=== PATIENT | female | born 1980 | race Caucasian/White ===

== ENCOUNTER 2016-07-26 18:44 | Emergency (ER) | payer MEDICAID ==
[2016-07-26 19:02] VITALS: BP 139/89
[2016-07-26] MEDS ORDERED: Ketorolac 30 MG/ML SDV IVPUSH ONE (19:28)
[2016-07-26] MEDS ORDERED: Sodium Chloride 0.9% 10 ML Syringe FLUSH PRN (19:28)
[2016-07-26] MEDS ORDERED: Sodium Chloride 0.9% 1,000 ML IV ONE (19:28)
--- NOTE | 2016-07-26 19:46 | EDM.PDOC ---
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 She says her period is much heavier than normal. She was soaking a pad or tampon every couple hours, however it has slowed down since arrival to the ED. She says "I just feel terrible." She reports right flank pain that is described as worse with movement. She denies dysuria, frequency, or urgency. No left flank pain. She reports a history of tubal ligation. She is 9, para 4. Her period is regular "like clockwork. " She says she feels lightheaded with position changes. She's had chills but no known fever. She reports a mild occasional non-productive cough that exaggerates her flank pain. - Related Data Allergies/ADRs: Allergies Allergy/AdvReac Type Severity Reaction Status Date / Time acetaminophen [From Tylenol] Allergy Vomiting Verified 11/11/15 22:49 codeine Allergy Vomiting Verified 11/11/15 22:49 Home Meds: Home Meds Ciprofloxacin [IJD: Ciprofloxacin HCl] 500 mg PO BID #14 tab 07/26/16 [Rx] Past Medical History - Past Surgical History Female Surgical History: Reports: section, Tubal ligation Social & Family History - Tobacco Use Smoking Status *Q: Current Every Day Smoker Years of Tobacco use: 12 Packs/Tins Daily: 0.5 Used Tobacco, but Quit: No - Caffeine Use Caffeine Use: Reports: Coffee, Energy drinks, Soda, Tea - Recreational Drug Use Recreational Drug Use: Yes Recreational Drug Type: Reports: Marijuana/Hashish Other Recreational Drug Type: last used about 1 month ago ED ROS GENERAL - Review of Systems Review Of Systems: See Below Constitutional: Reports: chills, malaise, fatigue, decreased appetite. Denies: fever Respiratory: Reports: Cough. Denies: Shortness of Breath, Sputum Cardiovascular: Reports: No symptoms. Denies: Chest pain, Dyspnea on exertion GI/Abdominal: Reports: No symptoms. Denies: Abdominal pain, Diarrhea, Nausea, Vomiting : Reports: flank pain, other (heavy menstural period ). Denies: dysuria, frequency, pain, urgency ED EXAM, RENAL/ - Physical Exam Exam: See Below Exam Limited By: No limitations General Appearance: alert, WD/WN, anxious, mild distress Respiratory/Chest: no respiratory distress, lungs clear, normal breath sounds Cardiovascular: regular rate, rhythm, no edema, tachycardia (110 bpm) GI/Abdominal: normal bowel sounds, soft, non tender, no distention Back Exam: normal inspection, full range of motion, CVA tenderness (R). No: CVA tenderness (L) Neurological: alert, oriented, normal cognition Skin Exam: Warm, Dry, Intact Course - Vital Signs Last Recorded V/S: Last Vital Signs Temp 99.4 F 07/26/16 19:01 Pulse 110 H 07/26/16 19:01 Resp 20 07/26/16 19:01 BP 139/89 07/26/16 19:01 Pulse Ox 99 07/26/16 19:01 - Orders/Labs/Meds Orders: Active Orders 24 hr Category Date Time Status Orthostatic Vital Signs [RC] ASDIRECTED Care 07/26/16 19:28 Active Peripheral IV Care [RC] . DIRECTED Care 07/26/16 19:28 Active CULTURE URINE [RM] Stat Lab 07/26/16 20:44 Uncollected Sodium Chloride 0.9% [Saline Flush] Med 07/26/16 19:28 Active 10 ml FLUSH ASDIRECTED PRN Peripheral IV Insertion Adult [OM.PC] Stat Oth 07/26/16 19:28 Ordered Medication Orders Sodium Chloride (Saline Flush) 10 ml FLUSH ASDIRECTED PRN PRN Reason: Keep Vein Open Last Admin: 07/26/16 19:54 Dose: 10 ml Labs: Laboratory Tests 07/26/16 07/26/16 07/26/16 Range/Units 19:35 19:35 19:48 WBC 7.61 (3.98-10.04) K/mm3 RBC 4.56 (3.98-5.22) M/mm3 Hgb 13.8 (11.2-15.7) gm/L Hct 39.8 (34.1-44.9) % MCV 87.3 (79.4-94.8) fl MCH 30.3 (25.6-32.2) pg MCHC 34.7 (32.2-35.5) g/dl RDW Std Deviation 41.0 (36.4-46.3) fL Plt Count 253 (182-369) K/mm3 MPV 9.7 (9.4-12.3) fl Neut % (Auto) 72.9 H (34.0-71.1) % Lymph % (Auto) 15.9 L (19.3-51.7) % [place] % (Auto) 10.5 (4.7-12.5) % Eos % (Auto) 0.1 L (0.7-5.8) Baso % (Auto) 0.3 (0.1-1.2) % Neut # (Auto) 5.55 (1.56-6.13) K/mm3 Lymph # (Auto) 1.21 (1.18-3.74) K/mm3 [place] # (Auto) 0.80 H (0.24-0.36) K/mm3 Eos # (Auto) 0.01 L (0.04-0.36) K/mm3 Baso # (Auto) 0.02 (0.01-0.08) K/mm3 Sodium 135 L (136-145) mEq/L Potassium 3.3 L (3.5-5.1) mEq/L Chloride 98 (98-107) mEq/L Carbon Dioxide 24 (21-32) mEq/L Anion Gap 16.3 H (5-15) BUN 8 (7-18) mg/dL Creatinine 0.9 (0.55-1.02) mg/dL Est Cr Clr Drug Dosing 79.25 mL/min Estimated GFR (MDRD) > 60 (>60) mL/min BUN/Creatinine Ratio 8.9 L (14-18) Glucose 103 (74-106) mg/dL Calcium 8.8 (8.5-10.1) mg/dL Total Bilirubin 0.7 (0.2-1.0) mg/dL AST 12 L (15-37) U/L ALT 16 (14-59) U/L Alkaline Phosphatase 66 (46-116) U/L C-Reactive Protein 15.7 H* (<1.0) mg/dL Total Protein 8.0 (6.4-8.2) g/dl Albumin 4.0 (3.4-5.0) g/dl Globulin 4.0 gm/dL Albumin/Globulin Ratio 1.0 (1-2) Urine Color Yellow (Yellow) Urine Appearance Cloudy H (Clear) Urine pH 6.0 (5.0-8.0) Ur Specific [place] 1.020 (1.005-1.030) Urine Protein 2+ H (Negative) Urine Glucose (UA) Negative (Negative) Urine Ketones 3+ H (Negative) Urine Occult Blood 3+ H (Negative) Urine Nitrite Positive H (Negative) Urine Bilirubin Negative (Negative) Urine Urobilinogen 1.0 (0.2-1.0) Ur Leukocyte Esterase 1+ H (Negative) Urine RBC 5-10 H (0-5) /hpf Urine WBC 75-100 H (0-5) /hpf Ur Squamous Epith Cells 10-20 H (0-5) /hpf Urine Bacteria Moderate H (FEW) /hpf Urine Mucus Not seen (FEW) /hpf Meds: Medications Generic Name Dose Route Start Last Admin Trade Name Freq PRN Reason Stop Dose Admin Sodium Chloride 10 ml 07/26/16 19:28 07/26/16 19:54 Saline Flush FLUSH 10 ml ASDIRECTED PRN Administration Keep Vein Open Discontinued Medications Generic Name Dose Route Start Last Admin Trade Name Freq PRN Reason Stop Dose Admin Sodium Chloride 1,000 mls @ 999 mls/hr 07/26/16 19:28 07/26/16 19:54 Normal Saline IV 07/26/16 20:28 999 mls/hr ONETIME ONE Administration Ketorolac Tromethamine 30 mg 07/26/16 19:28 07/26/16 19:55 Toradol IVPUSH 07/26/16 19:29 30 mg ONETIME ONE Administration - Re-Assessments/Exams Free Text/Narrative Re-Assessment/Exam: CBC reveals a normal WBC and hemoglobin. CRP is significantly elevated at 15.7. CMP reveals sodium of 135, potassium of 3.3, anion gap 16.3. UA is consistent with pyelonephritis as suspected. Urine culture ordered. Heart rate has improved to normal with IV fluids. She received Toradol for pain. Will treat with Cipro and discharge home. Patient educated on return precautions. Departure - Departure Time of Disposition: 20:52 Disposition: Home, Self-Care 01 Condition: good Clinical Impression: Pyelonephritis Heavy menses Qualifiers: Menorrahagia type: with regular cycle Qualified Code(s): N92.0 - Excessive and frequent menstruation with regular cycle Prescriptions: Ciprofloxacin [IJD: Ciprofloxacin HCl] 500 mg PO BID #14 tab Referrals: PCP,None [Primary Care Provider] - Forms: ED Department Discharge Additional Instructions: Ciprofloxacin 500mg twice a day for 7 days Ibuprofen 600mg every 8 hours as needed for pain or fever Drink at least 80 oz of water per day Return to ER with worsening symptoms or additional concerns. Follow-up in clinic in clinic in 2-3 days for recheck, call [phone] to schedule. - My Orders Last 24 Hours: My Active Orders 07/26/16 19:28 Orthostatic Vital Signs [RC] ASDIRECTED Peripheral IV Care [RC] . DIRECTED Sodium Chloride 0.9% [Saline Flush] 10 ml FLUSH ASDIRECTED PRN Peripheral IV Insertion Adult [OM.PC] Stat 07/26/16 20:44 CULTURE URINE [RM] Stat - Assessment/Plan Last 24 Hours: My Active Orders 07/26/16 19:28 Orthostatic Vital Signs [RC] ASDIRECTED Peripheral IV Care [RC] . DIRECTED Sodium Chloride 0.9% [Saline Flush] 10 ml FLUSH ASDIRECTED PRN Peripheral IV Insertion Adult [OM.PC] Stat 07/26/16 20:44 CULTURE URINE [RM] Stat
== END 2016-07-26 21:05 | disposition home or self-care (01) ==
LOC: JD.ED 18:44
DX: N92.0 Excessive and frequent menstruation with regular cycle (principal); N12 Tubulo-interstitial nephritis, not specified as acute or chronic; Z88.8 Allergy status to other drugs, medicaments and biological substances; F17.200 Nicotine dependence, unspecified, uncomplicated
CPT/HCPCS: 36415; 80053; 81001; 85025; 86140; 87086; 96361; 96374; 99284; J1885; J7040; J7050; 87088; 87186

== ENCOUNTER 2016-10-09 06:47 | Emergency (ER) | payer MEDICAID ==
[2016-10-09 06:56] VITALS: BP 133/90
[2016-10-09] MEDS ORDERED: Sodium Chloride 0.9% 10 ML Syringe FLUSH PRN ×2 (07:09→08:44)
[2016-10-09] MEDS ORDERED: Sodium Chloride 0.9% 1,000 ML IV STA (07:09)
[2016-10-09] MEDS ORDERED: HYDROmorphone 1 MG/ML Syringe IVPUSH ONE (07:10)
--- NOTE | 2016-10-09 07:35 | EDM.PDOC ---
ED HPI GENERAL MEDICAL PROBLEM - General Chief Complaint: Abdominal Pain Stated Complaint: LOWER R SIDE ABDOMINAL PAIN/FEVER Time Seen by Provider: 10/09/16 06:59 Source of Information: Reports: Patient History Limitations: Reports: No Limitations - History of Present Illness INITIAL COMMENTS - FREE TEXT/NARRATIVE: The patient presents with RLQ abdominal pain that stared yesterday. She has no nausea or vomiting. She has chills but no fever. She has no diarrhea or dysuria. She still has her gallbladder and appendix. She had a tubal ligation a few years ago. She says movement and the bumps on the road make this worse. Onset: Gradual Duration: Day(s): (Yesterday) Location: Reports: Abdomen (RLQ) Quality: Reports: Sharp Severity: Moderate Improves with: Reports: None Worsens with: Reports: Breathing, Movement Associated Symptoms: Reports: Fever/Chills. 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 Female Surgical History: Reports: Section, Tubal Ligation Social & Family History - Tobacco Use Smoking Status *Q: Current Every Day Smoker Years of Tobacco use: 19 Packs/Tins Daily: 0.5 Used Tobacco, but Quit: No - Caffeine Use Caffeine Use: Reports: Coffee, Energy Drinks, Soda, Tea - Recreational Drug Use Recreational Drug Use: No Recreational Drug Type: Reports: Marijuana/Hashish Other Recreational Drug Type: last used about 1 month ago ED ROS GENERAL - Review of Systems Review Of Systems: See Below Constitutional: Reports: No Symptoms HEENT: Reports: No Symptoms Respiratory: Reports: No Symptoms Cardiovascular: Reports: No Symptoms Endocrine: Reports: No Symptoms GI/Abdominal: Reports: Abdominal Pain (RLQ) : Reports: No Symptoms Musculoskeletal: Reports: No Symptoms Skin: Reports: No Symptoms Neurological: Reports: No Symptoms ED EXAM, GI/ABD - Physical Exam Exam: See Below Exam Limited By: No Limitations General Appearance: Alert, No Apparent Distress Ears: Normal External Exam Nose: Normal Inspection Head: Atraumatic, Normocephalic Neck: Normal Inspection Respiratory/Chest: No Respiratory Distress, Lungs Clear, Normal Breath Sounds Cardiovascular: Regular Rate, Rhythm, No Edema, No Murmur GI/Abdominal: Soft, No Organomegaly, No Mass, Tenderness (Moderate to the RLQ) Back Exam: Normal Inspection Extremities: Normal Inspection Course - Vital Signs Last Recorded V/S: Last Vital Signs Temp 97.7 F 10/09/16 06:53 Pulse 111 H 10/09/16 06:53 Resp 18 10/09/16 06:53 BP 133/90 10/09/16 06:53 Pulse Ox 96 10/09/16 06:53 - Orders/Labs/Meds Orders: Active Orders 24 hr Category Date Time Status Peripheral IV Care [RC] . DIRECTED Care 10/09/16 07:09 Active Sodium Chloride 0.9% [Saline Flush] Med 10/09/16 07:09 Active 10 ml FLUSH ASDIRECTED PRN Sodium Chloride 0.9% [Saline Flush] Med 10/09/16 08:44 Active 10 ml FLUSH ONETIME PRN ED Antiemetic Medication Reflex [OM.PC] Stat Oth 10/09/16 07:09 Ordered Peripheral IV Insertion Adult [OM.PC] Stat Oth 10/09/16 07:09 Ordered Medication Orders Sodium Chloride (Saline Flush) 10 ml FLUSH ASDIRECTED PRN PRN Reason: Keep Vein Open Last Admin: 10/09/16 07:44 Dose: 10 ml Sodium Chloride (Saline Flush) 10 ml FLUSH ONETIME PRN PRN Reason: IV FLUSH Last Admin: 10/09/16 08:54 Dose: 10 ml Labs: Laboratory Tests 10/09/16 10/09/16 10/09/16 Range/Units 07:22 07:32 07:32 WBC 8.76 (3.98-10.04) K/mm3 RBC 4.50 (3.98-5.22) M/mm3 Hgb 13.7 (11.2-15.7) gm/L Hct 39.6 (34.1-44.9) % MCV 88.0 (79.4-94.8) fl MCH 30.4 (25.6-32.2) pg MCHC 34.6 (32.2-35.5) g/dl RDW Std Deviation 42.7 (36.4-46.3) fL Plt Count 281 (182-369) K/mm3 MPV 9.4 (9.4-12.3) fl Neut % (Auto) 83.9 H (34.0-71.1) % Lymph % (Auto) 11.1 L (19.3-51.7) % [place] % (Auto) 4.8 (4.7-12.5) % Eos % (Auto) 0 L (0.7-5.8) Baso % (Auto) 0.1 (0.1-1.2) % Neut # (Auto) 7.35 H (1.56-6.13) K/mm3 Lymph # (Auto) 0.97 L (1.18-3.74) K/mm3 [place] # (Auto) 0.42 H (0.24-0.36) K/mm3 Eos # (Auto) 0.00 L (0.04-0.36) K/mm3 Baso # (Auto) 0.01 (0.01-0.08) K/mm3 Sodium 134 L (136-145) mEq/L Potassium 3.8 (3.5-5.1) mEq/L Chloride 101 (98-107) mEq/L Carbon Dioxide 21 (21-32) mEq/L Anion Gap 15.8 H (5-15) BUN 12 (7-18) mg/dL Creatinine 0.8 (0.55-1.02) mg/dL Est Cr Clr Drug Dosing 89.16 mL/min Estimated GFR (MDRD) > 60 (>60) mL/min BUN/Creatinine Ratio 15.0 (14-18) Glucose 105 (74-106) mg/dL Calcium 8.6 (8.5-10.1) mg/dL Total Bilirubin 0.4 (0.2-1.0) mg/dL AST 14 L (15-37) U/L ALT 18 (14-59) U/L Alkaline Phosphatase 66 (46-116) U/L Total Protein 7.6 (6.4-8.2) g/dl Albumin 3.7 (3.4-5.0) g/dl Globulin 3.9 gm/dL Albumin/Globulin Ratio 1.0 (1-2) Lipase 99 (73-393) U/L HCG, Qual (NEGATIVE) Urine Color Yellow (Yellow) Urine Appearance Clear (Clear) Urine pH 7.0 (5.0-8.0) Ur Specific [place] 1.015 (1.005-1.030) Urine Protein Negative (Negative) Urine Glucose (UA) Negative (Negative) Urine Ketones Negative (Negative) Urine Occult Blood Trace-lysed H (Negative) Urine Nitrite Positive H (Negative) Urine Bilirubin Negative (Negative) Urine Urobilinogen 0.2 (0.2-1.0) Ur Leukocyte Esterase Trace H (Negative) Urine RBC 5-10 H (0-5) /hpf Urine WBC 10-20 H (0-5) /hpf Ur Epithelial Cells 0-5 (0-5) /hpf Amorphous Sediment Few H (NOT SEEN) /hpf Urine Bacteria Moderate H (FEW) /hpf Urine Mucus Not seen (FEW) /hpf 10/09/ Range/Units 07:32 WBC (3.98-10.04) K/mm3 RBC (3.98-5.22) M/mm3 Hgb (11.2-15.7) gm/L Hct (34.1-44.9) % MCV (79.4-94.8) fl MCH (25.6-32.2) pg MCHC (32.2-35.5) g/dl RDW Std Deviation (36.4-46.3) fL Plt Count (182-369) K/mm3 MPV (9.4-12.3) fl Neut % (Auto) (34.0-71.1) % Lymph % (Auto) (19.3-51.7) % [place] % (Auto) (4.7-12.5) % Eos % (Auto) (0.7-5.8) Baso % (Auto) (0.1-1.2) % Neut # (Auto) (1.56-6.13) K/mm3 Lymph # (Auto) (1.18-3.74) K/mm3 [place] # (Auto) (0.24-0.36) K/mm3 Eos # (Auto) (0.04-0.36) K/mm3 Baso # (Auto) (0.01-0.08) K/mm3 Sodium (136-145) mEq/L Potassium (3.5-5.1) mEq/L Chloride (98-107) mEq/L Carbon Dioxide (21-32) mEq/L Anion Gap (5-15) BUN (7-18) mg/dL Creatinine (0.55-1.02) mg/dL Est Cr Clr Drug Dosing mL/min Estimated GFR (MDRD) (>60) mL/min BUN/Creatinine Ratio (14-18) Glucose (74-106) mg/dL Calcium (8.5-10.1) mg/dL Total Bilirubin (0.2-1.0) mg/dL AST (15-37) U/L ALT (14-59) U/L Alkaline Phosphatase (46-116) U/L Total Protein (6.4-8.2) g/dl Albumin (3.4-5.0) g/dl Globulin gm/dL Albumin/Globulin Ratio (1-2) Lipase (73-393) U/L HCG, Qual Negative (NEGATIVE) Urine Color (Yellow) Urine Appearance (Clear) Urine pH (5.0-8.0) Ur Specific [place] (1.005-1.030) Urine Protein (Negative) Urine Glucose (UA) (Negative) Urine Ketones (Negative) Urine Occult Blood (Negative) Urine Nitrite (Negative) Urine Bilirubin (Negative) Urine Urobilinogen (0.2-1.0) Ur Leukocyte Esterase (Negative) Urine RBC (0-5) /hpf Urine WBC (0-5) /hpf Ur Epithelial Cells (0-5) /hpf Amorphous Sediment (NOT SEEN) /hpf Urine Bacteria (FEW) /hpf Urine Mucus (FEW) /hpf Meds: Medications Generic Name Dose Route Start Last Admin Trade Name Freq PRN Reason Stop Dose Admin Sodium Chloride 10 ml 10/09/16 07:09 10/09/16 07:44 Saline Flush FLUSH 10 ml ASDIRECTED PRN Administration Keep Vein Open Sodium Chloride 10 ml 10/09/16 08:44 10/09/16 08:54 Saline Flush FLUSH 10 ml ONETIME PRN Administration IV FLUSH Discontinued Medications Generic Name Dose Route Start Last Admin Trade Name Freq PRN Reason Stop Dose Admin Diatrizoate Meglum/Diatrizoate Sod 120 ml 10/09/16 08:44 10/09/16 08:53 Gastrografin 37% PO 10/09/16 08:45 90 ml ONETIME ONE Administration Hydromorphone HCl 1 mg 10/09/16 07:10 10/09/16 07:37 Dilaudid IVPUSH 10/09/16 07:11 1 mg ONETIME ONE Administration Sodium Chloride 1,000 mls @ 1,000 mls/hr 10/09/16 07:09 10/09/16 07:37 Normal Saline IV 10/09/16 08:08 1,000 mls/hr .BOLUS STA Administration Iopamidol 100 ml 10/09/16 08:44 10/09/16 08:54 Isovue-300 (61%) IVPUSH 10/09/16 08:45 100 ml ONETIME ONE Administration Ondansetron HCl 4 mg 10/09/16 08:24 10/09/16 08:37 Zofran IVPUSH 10/09/16 08:25 4 mg ONETIME ONE Administration - Re-Assessments/Exams Free Text/Narrative Re-Assessment/Exam: 10/09/16 07:34 I ordered an IV NS 1L bolus, zofran 4mg IV, dilaudid 1mg IV, labs, UA and a CT of her abdomen and pelvis. 10/09/16 09:46 Her CBC and CMP look good. Her UA shows a UTI. Her CT shows a normal appendix. I will get her on 5 days of macrobid. I did give her some zofran for nausea she developed after drinking the contrast. Departure - Departure Time of Disposition: 09:50 Disposition: Home, Self-Care 01 Condition: good Clinical Impression: UTI (urinary tract infection) Qualifiers: Urinary tract infection type: site unspecified Hematuria presence: without hematuria Qualified Code(s): N39.0 - Urinary tract infection, site not specified - Discharge Information Prescriptions: Nitrofurantoin [place]/Macrocryst [Macrobid] 100 mg PO BID #10 cap Referrals: Sofia Pacheco PA [Physician Excavator Operator] - 1 Week Forms: ED Department Discharge Additional Instructions: Drink plenty of fluids. Take the macrobid 2 times per day for 5 days. Follow up with Sofia Pacheco if not better or return to the ER. Take tylenol or motrin for any pain. - My Orders Last 24 Hours: My Active Orders 10/09/16 07:09 Peripheral IV Care [RC] . DIRECTED Sodium Chloride 0.9% [Saline Flush] 10 ml FLUSH ASDIRECTED PRN ED Antiemetic Medication Reflex [OM.PC] Stat Peripheral IV Insertion Adult [OM.PC] Stat 10/09/16 08:44 Sodium Chloride 0.9% [Saline Flush] 10 ml FLUSH ONETIME PRN - Assessment/Plan Last 24 Hours: My Active Orders 10/09/16 07:09 Peripheral IV Care [RC] . DIRECTED Sodium Chloride 0.9% [Saline Flush] 10 ml FLUSH ASDIRECTED PRN ED Antiemetic Medication Reflex [OM.PC] Stat Peripheral IV Insertion Adult [OM.PC] Stat 10/09/16 08:44 Sodium Chloride 0.9% [Saline Flush] 10 ml FLUSH ONETIME PRN
[2016-10-09] MEDS ORDERED: Ondansetron 4 MG/2 ML SDV IVPUSH ONE (08:24)
[2016-10-09] MEDS ORDERED: Diatrizoate Meglumine/Diatrizoate Sodium 37% 120 ML Bottle PO ONE (08:44)
[2016-10-09] MEDS ORDERED: Iopamidol 612 MG/ML 100 ML Bottle IVPUSH ONE (08:44)
--- NOTE | 2016-10-09 09:33 | CT ---
CT abdomen and pelvis Technique: Multiple axial sections were obtained from above the dome of the diaphragm inferiorly through the pubic symphysis. Intravenous and oral contrast was utilized. Delayed images were also obtained through the bladder. Findings: Appendix is seen which appears normal. Visualized lung bases shows nothing acute. Liver shows no focal parenchymal abnormality. Spleen appears within normal limits. There is some parenchymal loss within the mid to upper right kidney. Parenchyma within the left kidney is preserved. No hydronephrosis or mass is seen within either kidney. Adrenal glands show no nodule. Pancreas is within normal limits. Gallbladder shows no calcified gallstones. Aorta shows no aneurysmal dilatation. No retroperitoneal adenopathy or mesenteric abnormalities are seen. No pelvic mass or adenopathy is seen. Prominent varicosities are seen within the pelvis along both sides of the uterus. Delayed images shows contrast within the bladder. Bone window settings were reviewed which are within normal limits for the patient's age. Impression: 1. Normal-appearing appendix is seen. 2. Cortical thinning within the mid and upper right kidney. 3. Pelvic varicosities on both sides of the uterus within the pelvis. 4. No additional abnormality is appreciated. Diagnostic code #3
== END 2016-10-09 10:05 | disposition home or self-care (01) ==
LOC: JD.ED 06:47
DX: N39.0 Urinary tract infection, site not specified (principal); F17.210 Nicotine dependence, cigarettes, uncomplicated; Z88.5 Allergy status to narcotic agent; Z88.6 Allergy status to analgesic agent; Z98.51 Tubal ligation status
CPT/HCPCS: 36415; 74177; 80053; 81001; 83690; 84703; 85025; 96361; 96374; 96375; 99284; J1170; J2405; J7040; J7050; Q9963; Q9967

== ENCOUNTER 2019-09-08 23:37 | Emergency (ER) | payer SELFPAY ==
--- NOTE | 2019-09-08 23:42 | EDM.PDOC ---
ED HPI GENERAL MEDICAL PROBLEM - General Chief Complaint: Skin Complaint Stated Complaint: SPIDER BITE ON BACK OF NECK Time Seen by Provider: 09/08/19 23:40 - History of Present Illness INITIAL COMMENTS - FREE TEXT/NARRATIVE: 39-year-old female presents the emergency room with this painful area on the back of her upper back. She thinks maybe she was bit by a spider. For the last 5 to 6 days the patient's had increased discomfort and pain on the right side of her upper back or lower neck. It is getting more and more swollen red and tender. She does not recall seeing a spider she thinks maybe she was bit by a spider in her sleep. She is up-to-date on her tetanus. Patient has no other complaints at this time. 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: - Past Surgical History Female Surgical History: Reports: Section, Tubal Ligation Social & Family History - Caffeine Use Caffeine Use: Reports: Coffee, Energy Drinks, Soda, Tea ED ROS GENERAL - Review of Systems Review Of Systems: See Below Constitutional: Reports: No Symptoms HEENT: Reports: No Symptoms Respiratory: Reports: No Symptoms Cardiovascular: Reports: No Symptoms GI/Abdominal: Reports: No Symptoms ED EXAM, SKIN/RASH Exam: See Below Exam Limited By: No Limitations General Appearance: Alert, No Apparent Distress Head: Atraumatic Neck: Normal Inspection, Supple, Non-Tender, Full Range of Motion. No: Lymphadenopathy (L), Lymphadenopathy (R) Respiratory/Chest: No Respiratory Distress, Lungs Clear, Normal Breath Sounds Cardiovascular: Regular Rate, Rhythm, No Edema, No Murmur Back Exam: Other (The upper right hand upper most thoracic back she has a developing lesion over her skin no area of fluctuation but it might be trying to come to ahead. She has about 3 to 3-1/2 cm ovoid area of erythema warmth and tenderness. Medial inferior portion is a little more prominent than the rest but still nonfluctuant. This part is exquisitely tender with palpation. No evidence of a stinger or trauma) Course - Vital Signs Last Recorded V/S: Last Vital Signs Temp 36.5 C 09/08/19 23:44 Pulse 85 09/08/19 23:44 Resp 16 09/08/19 23:44 BP 134/99 H 09/08/19 23:44 Pulse Ox 99 09/08/19 23:44 - Re-Assessments/Exams Free Text/Narrative Re-Assessment/Exam: 09/08/19 23:58 Patient probably has an inflamed sebaceous cyst or possibly a developing superficial abscess. She will be started on doxycycline and warm compresses. I discussed this with the patient and she is in agreement to this. Departure - Departure Time of Disposition: 23:58 Disposition: Home, Self-Care 01 Clinical Impression: Skin abscess - Discharge Information Referrals: PCP,None [Primary Care Provider] - Forms: ED Department Discharge Additional Instructions: Return to the emergency room with any questions problems or worsening symptoms. Use warm compresses for 15 to 20 minutes every 2 hours while awake. Take the antibiotics as directed you have been started on doxycycline 100 mg # 14 take 1 twice daily until all gone. If this is not resolved on its own within a week follow-up in the clinic for recheck. Sepsis Event Note - Focused Exam Vital Signs: Vital Signs Temp Pulse Resp BP Pulse Ox 09/08/19 23:44 36.5 C 85 16 134/99 H 99 Date Exam was Performed: 09/08/19 Time Exam was Performed: 23:55
[2019-09-08 23:47] VITALS: BP 134/99; PULSE 85
[2019-09-09] MEDS ORDERED: Doxycycline 100 MG Cap PO ONE (00:04)
== END 2019-09-09 00:15 | disposition home or self-care (01) ==
LOC: JD.ED 23:37
DX: L02.212 Cutaneous abscess of back [any part, except buttock and flank] (principal); Z88.5 Allergy status to narcotic agent; Z88.6 Allergy status to analgesic agent; Z79.899 Other long term (current) drug therapy
CPT/HCPCS: 99283; A9270